=== PATIENT | male | born 1950 | race Caucasian/White ===

== ENCOUNTER 2020-03-19 18:42 | Emergency (ER) | payer MEDICARE, MEDICAID, SELFPAY | END 2020-03-19 18:49 | disposition left against medical advice (07) | LOC: EXPBETH 18:50 | PROVIDERS: Emergency Provider Nurse Practitioner Family; PCP Internal Medicine | DX: Z53.21 Procedure and treatment not carried out due to patient leaving prior to being seen by health care provider (principal) | CPT/HCPCS: 99199 ==